=== PATIENT | male | born 1985 | race Caucasian/White ===

== ENCOUNTER 2016-10-27 17:27 | Emergency (ER) | payer MEDICAID ==
[2016-10-27 17:33] VITALS: BP 100/42
[2016-10-27] MEDS ORDERED: KETOROLAC TROMETHAMINE 60 MG/2 ML VIAL IM ONE ×2 (18:02→18:04)
--- NOTE | 2016-10-27 18:02 | ERNOTE ---
Back Pain ER HPI Date of Service: 10/27/16 Presenting Symptoms: injury/pain to back Time Seen by Provider: 10/27/16 17:46 Source: patient, RN notes reviewed Exam Limitations: no limitations Immunizations: IMMUNIZATION HX Immunizations Up to Date No History of Influenza Vaccine No Hx Pneumococcal Vaccination No Allergies/Adverse Reactions: Allergies No Known Allergies Allergy (Verified 10/27/16 17:33) Home Medications: HOME MEDICATIONS Amox Tr/Potassium Clavulanate [Augmentin 875-125 Tablet] 875 mg PO Q12H #20 tab 10/27/16 [Last Taken Unknown] Cyclobenzaprine HCl [Flexeril] 10 mg PO TID PRN #30 tab 10/27/16 [Last Taken Unknown] Ibuprofen [Motrin] 600 mg PO Q6H PRN #40 tab 10/27/16 [Last Taken Unknown] Narrative: Jonathan is a 31 year old male who presents to the ED for low back pain that began the night before last without incident. He reports being barely able to get out of bed the last 2 mornings. He has taken ibuprofen with some improvement. He also reports nasal congestion, sinus pain, sore throat and a cough for approximately 2 weeks. Quality/Severity: Reports: severe, aching, dullness Location of pain: Reports: lower back, no radiation Activities at Onset: Reports: none Recent Injury?: Reports: no Possible Precipitating Factor: Reports: none Review of Systems - Review of Systems Constitutional: Present: fever, fatigue, malaise. Absent: chills EYE: Present: no symptoms reported ENT: Present: nose congestion, nasal drainage, sore throat. Absent: ear pain Respiratory: Present: cough. Absent: shortness of breath, wheezing Cardiology: Absent: chest pain, syncope Gastrointestinal/Abdominal: Absent: nausea, abdominal pain Genitourinary: Absent: dysuria, hematuria Musculoskeletal: Present: back pain, muscle pain, muscle stiffness. Absent: neck pain, joint pain Skin: Absent: lesions, lumps Neurological: Present: headache. Absent: dizziness/light-headedness Endocrine: Present: no symptoms reported Hematologic/Lymphatic: Present: no symptoms reported Psych: Present: no symptoms reported - Patient's Past Medical History Patient History - Medical: No pertinent hx Patient History - Cardiac/Respiratory: No pertinent hx Patient History - Cancer: No Hx of Cancer Patient History - Surgical Procedures: No surgical history - Social History Smoking Status: Current every day smoker Cigarettes Packs Per Day: 0.5 Have you smoked in the past 12 months: Yes - Immunizations Immunizations Up to Date: No Hx Pneumococcal Vaccination: No History of Influenza Vaccine: No Physical Exam - Physical Exam General Appearance: Present: wd/wn, alert, no apparent distress, other - appears uncomfortable Ears, Nose, Throat: Present: hearing grossly normal, nasal congestion, sinus pain/drainage, pharyngeal erythema. Absent: abnormal TM (R), abnormal TM (L) Neck: Present: supple, lymphadenopathy (R), lymphadenopathy (L) Respiratory: Present: no respiratory distress, normal breath sounds, no accessory muscle use, lungs clear Cardiovascular/Chest: Present: regular rate, rhythm, no murmur Back Exam: Present: no CVA tenderness, no vertebral tenderness, decreased range of motion, other - right paraspinal lumbar region muscle tenderness Extremity Exam: Present: normal inspection, no edema, normal range of motion Neurological Exam: Present: alert, oriented, no motor/sensory deficits, other - normal strength against resistance in lower extremities. Absent: normal mood/ affect - depressed appearing DTR: N=norm/NB=norm/brisk/A=abs/DD=dull/dimin/HC=hyperactive: Knee (R): Normal/ Brisk, Knee (L): Normal/Brisk Skin Exam: Present: normal color, warm/dry ED Progress - Vital Signs Patient's Vital Signs:: I have reviewed the patient's vital signs. Vital Signs: Vital Signs 10/27/16 17:30 Temperature 36.5 C Pulse Rate 91 Respiratory 14 Rate Blood Pressure 100/42 O2 Sat by Pulse 98 Oximetry - Progress/Reassessment Chief Complaint: Back Pain Progress:: Improved Departure Clinical Impression: Back pain Qualifiers: Back pain location: low back pain Chronicity: acute Back pain laterality: right Sciatica presence: without sciatica Qualified Code(s): M54.5 - Low back pain Sinusitis, acute Qualifiers: Sinusitis location: maxillary Recurrence: non-recurrent Qualified Code(s): J01.00 - Acute maxillary sinusitis, unspecified Bronchitis, acute Qualifiers: Bronchitis organism: unspecified organism Qualified Code(s): J20.9 - Acute bronchitis, unspecified - Departure Disposition: Home Follow Up Needed Condition: Stable Instructions: Form - Excuse from Work, School, or Physical Activity, Back Pain , Adult, [id number] Referrals: Tisha Hancock, [employer] ENGINEER [Primary Care Provider] - Prescriptions: Amox Tr/Potassium Clavulanate [Augmentin 875-125 Tablet] 875 mg PO Q12H #20 tab Cyclobenzaprine HCl [Flexeril] 10 mg PO TID PRN #30 tab PRN Reason: MUSCLE SPASMS Ibuprofen [Motrin] 600 mg PO Q6H PRN #40 tab PRN Reason: Pain
--- OUTSIDE RECORDS SUMMARY | 2016-10-27 18:10 | XMS REPORT | Continuity of Care Document ---
:1985 Author Organization [facility] ([facility]) Address [address] [place] [address] Phone [phone] Care Team Providers Name Role Phone Unavailable Primary Care Provider Unavailable Source Comments This disclosure is being made pursuant to the Care Everywhere program, applicable federal and state laws, and may not contain all informaitonavailable regarding this patient.[facility] ([facility]) Active Allergies and Adverse Reactions Not on File Current Medications Not on file Active Problems Not on file Social History Tobacco Use Types Packs/Day Years Used Date Never Assessed Plan of Care Health Maintenance Due Date Last Done Comments Hepatitis B Vaccine (1 of 3 - Primary Series) 1985 Tdap Vaccine 1996 Lipid Disorder Screening 2003 MMR Vaccine 2003 Td Vaccine 2003 Varicella Vaccine (1 of 2 - Adult - No Evidence of 2003 Immunity) Influenza Vaccine: Seasonal (#1) 04/13/2016 Results from Last 3 Months Not on file
== END 2016-10-27 18:17 | disposition home or self-care (01) ==
LOC: ER 17:27
DX: M54.5 Low back pain (principal); J01.00 Acute maxillary sinusitis, unspecified; J20.9 Acute bronchitis, unspecified; Z72.0 Tobacco use

== ENCOUNTER 2017-04-14 12:36 | Emergency (ER) | payer MEDICAID ==
[2017-04-14 12:48] VITALS: BP 113/51
[2017-04-14] MEDS ORDERED: CYCLOBENZAPRINE HCL 10 MG TABLET PO ONE (13:07)
[2017-04-14] MEDS ORDERED: KETOROLAC TROMETHAMINE 60 MG/2 ML VIAL IM ONE ×2 (13:07→13:13)
--- NOTE | 2017-04-14 13:08 | ERNOTE ---
Back Pain ER HPI Time Seen by Provider: 04/14/17 12:58 Source: patient Exam Limitations: no limitations Immunizations: IMMUNIZATION HX Immunizations Up to Date Yes History of Influenza Vaccine No Hx Pneumococcal Vaccination No Allergies/Adverse Reactions: Allergies No Known Allergies Allergy (Verified 04/14/17 12:48) Home Medications: HOME MEDICATIONS Cyclobenzaprine HCl [Flexeril] 10 mg PO TID PRN #30 tab 04/14/17 [Last Taken Unknown] Narrative: Patient has only had occasional back pain, nothing chronic or persistent. 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 He denies any radiation, no weakness or numbness in that leg. He has had numbness in his right foot for about three weeks Date (Duration): 04/14/17 Time (Timing): 09:00 Quality/Severity: Reports: severe, sharpness Location of pain: Reports: lower back, no radiation Recent Injury?: Reports: no Possible Precipitating Factor: Reports: other Modifying Factors - (Worsens): Reports: movement flexion Associated Symptoms: Denies: fever/chills, constipation/incontinence, nausea/ vomiting Prior Treament: Denies: recently seen, similar symptoms before Review of Systems - Review of Systems Constitutional: Absent: recent illness, fever ENT: Absent: sore throat Respiratory: Absent: shortness of breath, wheezing Cardiology: Absent: chest pain Gastrointestinal/Abdominal: Absent: nausea, abdominal pain Genitourinary: Present: no symptoms reported Musculoskeletal: Present: See HPI Skin: Absent: rash Neurological: Present: See HPI, numbness. Absent: weakness - Patient's Past Medical History Patient History - Medical: No pertinent hx Patient History - Cardiac/Respiratory: No pertinent hx Patient History - Cancer: No Hx of Cancer Patient History - Surgical Procedures: No surgical history Patient History - Other: None - Social History Living Situations: home Abuse History: No History of abuse Psych History: No pertinent hx Smoking Status: Current every day smoker Have you smoked in the past 12 months: Yes Alcohol Use: rarely Drug Use: none - Immunizations Immunizations Up to Date: Yes Hx Pneumococcal Vaccination: No History of Influenza Vaccine: No Physical Exam - Physical Exam General Appearance: Present: wd/wn, alert, mild distress Neck: Present: normal inspection, nontender Respiratory: Present: no respiratory distress, normal breath sounds, chest nontender, lungs clear Cardiovascular/Chest: Present: regular rate, rhythm, no murmur Back Exam: Present: normal inspection, vertebral tenderness - lumbar spine, left paraspinal muscle spasm Extremity Exam: Present: normal inspection, other - left low back pain on straight leg raise both sides Neurological Exam: Present: alert, oriented, normal mood/affect, other - decreased sensation right foot, no other sensation deficit. Absent: motor weakness Skin Exam: Present: normal color, warm/dry ED Progress - Vital Signs Patient's Vital Signs:: I have reviewed the patient's vital signs. Vital Signs: Vital Signs 04/14/17 12:44 Temperature 36.7 C Pulse Rate 100 Respiratory 16 Rate Blood Pressure 113/51 O2 Sat by Pulse 100 Oximetry - X-Ray X-Ray #1 X-Ray: lumbosacral - no fracture Interpretation: Reviewed by me - Progress/Reassessment Chief Complaint: Back Pain Progress Note-Subjective: 04/14/17 14:23 discussed results with patient and , pain better after toradol Departure Clinical Impression: Lumbar back sprain Qualifiers: Encounter type: initial encounter Qualified Code(s): S33.5XXA - Sprain of ligaments of lumbar spine, initial encounter - Departure Disposition: Home self-care Condition: Good Instructions: Low Back Sprain With Rehab-SportsMed, Form - Excuse from Work, School, or Physical Activity Additional Instructions: take over the counter ibuprofen (200mg) four tablets three times a day if your symptoms don't improve over the next week follow up with your PCP Referrals: Tisha Hancock, ASSOCIATE PROFESSOR OF RADIOLOGY [[facility]] - Prescriptions: Cyclobenzaprine HCl [Flexeril] 10 mg PO TID PRN #30 tab PRN Reason: MUSCLE SPASMS
[2017-04-14] MEDS ORDERED: CYCLOBENZAPRINE HCL 10 MG TABLET ONE (13:14)
== END 2017-04-14 14:31 | disposition home or self-care (01) ==
LOC: ER 12:36
DX: S33.5XXA Sprain of ligaments of lumbar spine, initial encounter (principal); X58.XXXA Exposure to other specified factors, initial encounter; Y93.H9 Activity, other involving exterior property and land maintenance, building and construction; Y92.9 Unspecified place or not applicable; F17.200 Nicotine dependence, unspecified, uncomplicated

== ENCOUNTER 2017-06-16 18:44 | Emergency (ER) | payer MEDICAID ==
[2017-06-16] MEDS ORDERED: ASPIRIN 81 MG TAB.CHEW ONE (18:53)
[2017-06-16] MEDS ORDERED: ASPIRIN 81 MG TAB.CHEW PO ONE (18:58)
[2017-06-16 19:10] LABS: Hematocrit 43.9 % (42.0-52.0); Hemoglobin 13.6 gm/dL (13.5-18.0); Mean Cell Volume 86.4 fl (78-100); Mean Corpuscular Hemoglobin 26.8 pg (27-31); Mean Platelet Volume 9.8 fl (6.0-9.5); Neutrophil # 3.5 K/mm3 (1.3-6.0); Neutrophil % 47.4 % (42-75.0); Platelet Count 300 K/mm3 (150-450); Red Blood Count 5.08 M/mm3 (4.7-6.0); Red Cell Distribution Width 12.6 % (11.5-14.0); White Blood Count 7.3 K/mm3 (4.0-10.5)
--- NOTE | 2017-06-16 19:13 | ERNOTE ---
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 He has not felt well since. His main symptoms at this time are feeling and exhausted and drained. He has intermittent sharp chest pain by his left shoulder on and of lasting about a minutes. Date (Duration): 06/15/17 Time (Timing): 12:00 Timing: intermittent Severity/Quality: mild, sharp Location: shoulder Chest Pain Radiation: no radiation Activities at Onset: other Nitro Today/Relief: no nitro taken today Aspirin Treatment Today: no aspirin today Associated Symptoms: Present: dizziness, shortness of breath. Absent: back pain Prior Treatment: Denies: recently seen, currently on antibiotics Review of Systems - Review of Systems Constitutional: Present: fatigue, malaise. Absent: recent illness, fever EYE: Absent: vision changes ENT: Absent: nose congestion, sore throat Respiratory: Present: shortness of breath. Absent: cough Cardiology: Present: See HPI Gastrointestinal/Abdominal: Absent: nausea, vomiting, abdominal pain Genitourinary: Present: no symptoms reported Musculoskeletal: Absent: back pain Skin: Absent: rash Neurological: Present: weakness - generalized. Absent: headache, numbness - Patient's Past Medical History Patient History - Medical: No pertinent hx Patient History - Cardiac/Respiratory: No pertinent hx Patient History - Cancer: No Hx of Cancer Patient History - Surgical Procedures: No surgical history Patient History - Other: None - Social History Living Situations: home Abuse History: No History of abuse Psych History: No pertinent hx Smoking Status: Current every day smoker Have you smoked in the past 12 months: Yes Do you dip or chew tobacco: No Alcohol Use: rarely Drug Use: none - Immunizations Immunizations Up to Date: No - unsure Hx Pneumococcal Vaccination: No History of Influenza Vaccine: No Physical Exam - Physical Exam General Appearance: Present: wd/wn, alert, no apparent distress, anxious Ears, Nose, Throat: Present: normal pharynx Respiratory: Present: no respiratory distress, normal breath sounds, no accessory muscle use, lungs clear Cardiovascular/Chest: Present: regular rate, rhythm, no murmur Gastrointestinal/Abdominal: Present: nontender, nondistended, soft Extremity Exam: Present: no edema Neurological Exam: Present: alert, oriented, normal mood/affect Skin Exam: Present: normal color, warm/dry ED Progress - Results and Orders Patient's Lab Results:: I have reviewed the patient's lab results. - Vital Signs Patient's Vital Signs:: I have reviewed the patient's vital signs. Vital Signs: Vital Signs 06/16/17 18:49 Pulse Rate 98 Respiratory 16 Rate Blood Pressure 137/77 O2 Sat by Pulse 97 Oximetry - EKG EKG: NSR - 101 EKG read: Interp. by me - X-Ray X-Ray #1 X-Ray: chest - no acute changes, hypoinflation Interpretation: Interp. 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
[2017-06-16 19:23] LABS: Prothrombin Time (Patient) 11.2 Seconds (9.4-11.4)
[2017-06-16 19:25] LABS: INR 1.08 INR (0.90-1.10); Partial Thrombolplastin Time 25.7 Seconds (24-32)
[2017-06-16 19:29] LABS: ALT 36 U/L (19-67); AST 20 U/L (0-48); Albumin * 3.5 gm/dl (3.4-5.0); Alkaline Phosphatase * 65 U/L (50-170); Anion Gap 11.5 mmol/L (6.8-13.8); BUN/Creatinine Ratio 13.6 (9.0-21.6); Bilirubin, Total 0.2 mg/dL (0.0-1.1); Blood Urea Nitrogen 15 mg/dL (6-23); Ca. Corrected For Albumin 8.3 mg/dL (8.4-10.2); Calcium * 8.2 mg/dL (7.9-10.9); Carbon Dioxide 26.1 mmol/L (24-32.6); Chloride 105 mmol/L (97-106); Glucose * 120 mg/dL (70-110); Potassium 3.6 mmol/L (3.4-4.6); Sodium 139 mmol/L (132-142); Total Protein 7.2 gm/dL (6.2-8.2); Troponin I Less than 0.017 ng/ml (0.00-0.10)
[2017-06-16 19:41] VITALS: BP 115/79
== END 2017-06-16 19:40 | disposition home or self-care (01) ==
LOC: ER 18:44
DX: T65.6X1A Toxic effect of paints and dyes, not elsewhere classified, accidental (unintentional), initial encounter (principal); R53.83 Other fatigue; F17.200 Nicotine dependence, unspecified, uncomplicated; Y92.63 Factory as the place of occurrence of the external cause; Y99.0 Civilian activity done for income or pay